=== PATIENT | female | born 1940 | race Caucasian/White ===

== ENCOUNTER → 2024-03-19 | Outpatient (CLI) | payer MEDICARE, MEDICAID, SELFPAY ==
[2024-03-19 10:18] LABS: Basophils % (Auto) 1 % (0-2.5); Eosinophils # (Auto) 0.4 Thou/mm3 (0.0-0.5); Eosinophils % (Auto) 6 % (0-10); Hematocrit 38.9 % (36.0-46.0); Hemoglobin 12.8 g/dL (12.0-16.0); Immature Granulocytes % (Auto) 0 % (0-0); Immature Granulocytes Auto 0.01 Thou/mm3 (0.00-0.00); Lymphocytes # (Auto) 2.8 Thou/mm3 (1.0-4.8); Lymphocytes % (Auto) 46 % (10-50); Mean Corpuscular HGB Conc 32.9 g/dl (31.0-37.0); Mean Corpuscular Hemoglobin 31.4 pg (25.0-35.0); Mean Corpuscular Volume 95 fL (80-100); Monocytes # (Auto) 0.6 Thou/mm3 (0.0-0.8); Monocytes % (Auto) 10 % (0-12); Neutrophils # (Auto) 2.3 Thou/mm3 (1.8-7.7); Neutrophils % (Auto) 37 % (37-80); Nucleated Red Blood Cell % 0 /100 WBC (0); Platelet Count 211 Thou/mm3 (140-440); RDW Standard Deviation 45.3 fL (36.4-46.3); Red Blood Count 4.08 Miln/mm3 (4.00-5.20); White Blood Count 6.1 Thou/mm3 (3.6-11.0)
[2024-03-19 10:38] LABS: Glucose Estimated Average 114 mg/dL (80-131); Hemoglobin A1C 5.6 % Hgb (4.8-6.0)
[2024-03-19 10:52] LABS: Alanine Aminotransferase 10 U/L (10-49); Albumin/Globulin Ratio 1.3 (1.2-2.2); Alkaline Phosphatase 87 U/L (46-116); Anion Gap 5 (7-16); Aspartate Amino Transferase 10 U/L (0-34); BUN/Creatinine Ratio 23 Ratio (12-20); Bilirubin,Total 0.4 mg/dL (0.3-1.2); Blood Urea Nitrogen 27 mg/dL (9-23); Calcium 9.4 mg/dL (8.3-10.6); Calcium (Corrected) 9.4 mg/dL (8.5-10.1); Carbon Dioxide 34.7 mMol/L (20.0-31.0); Cardiac Risk Estimate 2.9 RATIO (3.7-5.6); Chloride 100 mMol/L (98-107); Cholesterol 134 mg/dL (132-200); Creatinine (Component) 1.2 mg/dL (0.6-1.3); Globulin 3.2 gm/dL (2.3-3.5); Glucose 101 mg/dL (74-106); HDL Cholesterol 46 mg/dL (40-60); LDL Cholesterol,Calculated 71 mg/dL (0-130); Osmolality,Calculated 284 (275-295); Potassium 4.1 mMol/L (3.4-5.1); Sodium 140 mMol/L (136-145); Thyroid Stimulating Hormone 4.18 uIU/mL (0.55-4.78); Total Protein 7.2 gm/dL (5.7-8.2); Triglycerides 83 mg/dL (30-150); eGFR 45 See Note
== END | disposition home or self-care (01) ==
LOC: SLDO 08:38
PROVIDERS: Referring Provider Family Medicine; Visit Provider Family Medicine
DX: F71 Moderate intellectual disabilities (principal); K57.90 Diverticulosis of intestine, part unspecified, without perforation or abscess without bleeding; E11.9 Type 2 diabetes mellitus without complications
CPT/HCPCS: 36415; 80053; 80061; 83036; 84443; 85025

== ENCOUNTER 2024-04-22 09:47 | Outpatient (RCR) | payer MEDICARE, MEDICAID, SELFPAY ==
--- NOTE | 2024-04-22 11:15 | CTCFLWUP_ITS ---
Patient: GINNY RODRIGUEZ : 1940 Page 2 of 2 FOLLOW UP NOTE DATE OF SERVICE: 04/22/2024 NAME: GINNY RODRIGUEZ ACCOUNT: [id number] : 1940 AGE: 83 INTERVAL HISTORY: Patient is brought in by long term attender. Patient is doing well denies any bleeding per rectum or any blood in the stools. She has good appetite and have not lost any weight. ONCOLOGY HISTORY: DIAGNOSIS: Malignant neoplasm of sigmoid colon [ICD10] C18.7 DATE OF DIAGNOSIS: 11/27/2023 STAGE/TNM: Stage II colon adenocarcinoma status post hemicolectomy. No chemotherapy or radiation as well as goo d risk stage II TREATMENT HISTORY: Care?Plan Start?Date Cycle Day Intent HISTORY OF PRESENT ILLNESS: Ginny Rodriguez is a 83-year-old ENG speaking female with mild mental retardation has the following oncology history. 06/27/2023: Ms. Rodriguez had a colonoscopy done for heme positive stools. 07/24/2023: CT scan of the abdomen and pelvis with IV contrast? 08/13/2023: CEA 12.4 08/14/2023: Ms. Rodriguez had an attempted laparoscopic, open rectosigmoidectomy with low pelvic stapl ed coloproctostomy 09/25/2023: Hemoglobin 11.6, MCV 95, WBC 5.4, ANC 2.0, platelets 248,000. 10/16/2023: PET/CT scan? OTHER MEDICAL HISTORY/CONDITIONS: Invasive adenocarcinoma sigmoid Colon - dx diverticulosis Diabetes Hyperlipidemia HTN Sleep Apnea Asthma Major Depressive disorder Moderate intelluctual disorder Open rectosigmoidectomy with low pelvic stapled coloprotostomy - 08/14/23 - 1967 T and A - as child Cholecystectomy FAMILY HISTORY: Sibling:?Brother?-?skin Cancer?History:?UNKNOWN SOCIAL HISTORY: Occupational?History:?Disabled Education?Level:?Completed something less than 8th grade Marital?Status:?Single Tobacco?Pack?per?Day:?0 Tobacco?Use:?Denies ETOH?Use:?Denies Drug?Note:?Denies Social History Note:?Lives in care home [employer] HISTORY: Menarche?-?Age:?Unknown Menopause:?Unknown :?1 Live?Births:?1 Age?1st?:?27 MEDICATIONS: 1. albuterol - 90 mcg/24 h As directed 2. aspirin - 81 mg 1 Capsule Daily 3. BUDESONIDE/FORMOTEROL FUMARATE - As directed 4. Bystolic - 5 mg Daily 5. citalopram - 20 mg Daily 6. ipratropium bromide - As directed 7. Lasix - 40 mg Daily 8. levothyroxine - 50 mcg 1 tab Daily 9. multivitamin - 1 tab Daily 10. pravastatin - 40 mg Daily 11. Senna Lax - 8.5 mg Daily 12. spironolactone - 25 mg Daily Medications Last Reconciled by Adia Helton MA on 04/22/2024 ALLERGIES: REVIEW OF SYSTEMS: A complete 14-point review of systems was performed and is negative except as noted in interval histo ry. PHYSICAL EXAMINATION: VITAL SIGNS: Temperature?98.2, B/P?103/72, Oxygen?Saturation?89% PAIN: 0 - No pain ECOG Performance Status: 0 - Asymptomatic and fully active GENERAL APPEARANCE: Appears well, in no apparent distress, appropriately interactive. HEENT: Normocephalic, no temporal wasting, normal conjunctiva, no scleral icterus, normal hearing, li ps without lesions, neck normal range of motion. CARDIOVASCULAR: Not assessed. PULMONARY: Normal respiratory effort, no respiratory distress or use of accessory muscles, speaking i n full sentences, no tachypnea. EXTREMITIES: No pedal edema or cyanosis. SKIN: Normal skin appearance. NEUROLOGIC: Alert and oriented x4. PSHYCHIATRIC: Appropriate affect, mood normal, behavior normal, intact thought and speech. LABORATORY DATA: I have personally reviewed and interpreted each of the patient?s relevant lab tests, abnormal finding s are below: Date 03/19/24 ??WHITE?BLOOD?COUNT?(Thou/mm3) 6.1 ??RED?BLOOD?COUNT?(Miln/mm3) 4.08 ??HEMOGLOBIN?(gm/dl) 12.8 ??HEMATOCRIT?(%) 38.9 ??PLATELET?COUNT?(Thou/mm3) 211 ??NEUTROPHILS?%,?AUTO?(%) 37 ??LYMPH?%,?AUTO?(%) 46 ??NEUTROPHILS,?AUTO?(Thou/mm3) 2.3 ASSESSMENT/PLAN: 1. Stage IIa (T3 N0 M0), MMR proficient well-differentiated adenocarcinoma of the sigmoid colon s/p s igmoid colectomy (08/14/2023). No high risk features such as perforation, lymphovascular invasion or p erineural invasion. 2. PET/CT scan negative for metastatic disease. 3. Mild mental delay. Elderly age (83 years of age) Reviewed CBC CMP results with Ms. Rodriguez. Advised to do CBC CMP CEA. Will also get imaging CBC CMP CEA CT chest abdomen pelvis with IV contrast RETURN TO CLINIC: 4 weeks to review imaging and then another visit in 6 months with labs only BILLING AND COMPLIANCE: I reviewed external records from providers outside my specialty as summarized above. I spent a total of 50 minutes on this patient?s care on the day of their visit excluding time spent related to any bi lled procedures. This time includes time spent with the patient as well as time spent documenting in the medical record, reviewing patients records and tests, obtaining history, placing orders, communi cating with other healthcare professionals, counseling the patient, family or caregiver, and/or care coordination for the diagnoses above. Electronically Signed by: Freddy Trujillo MD T: 11:12 AM CC: PCP: Alejandro Holder Referring: Alejandro Holder This document was completed utilizing speech recognition software. Grammatical errors, random word in sertions, pronoun errors, and incomplete sentences are an occasional consequence of this system due t o software limitations, ambient noise, and hardware issues. Any formal questions or concerns about th e content, text or information contained within the body of this dictation should be directly address ed to the provider for clarification.
== END 2024-05-07 23:59 | disposition home or self-care (01) ==
LOC: SCTC 09:47
PROVIDERS: PCP Family Medicine; Referring Provider Family Medicine; Visit Provider Radiology Therapeutic Radiology
DX: C18.7 Malignant neoplasm of sigmoid colon (principal); Z90.49 Acquired absence of other specified parts of digestive tract; F70 Mild intellectual disabilities
CPT/HCPCS: 99212; G0463

== ENCOUNTER → 2024-05-25 | Outpatient (CLI) | payer MEDICARE, MEDICAID, SELFPAY ==
[2024-05-25 18:58] LABS: Albumin, Serum 3.5 gm/dL (3.4-4.8); Anion Gap 7 (7-16); BUN/Creatinine Ratio 19 Ratio (12-20); Blood Urea Nitrogen 19 mg/dL (9-23); Calcium 9.2 mg/dL (8.3-10.6); Calcium (Corrected) 9.6 mg/dL (8.5-10.1); Carbon Dioxide 37.2 mMol/L (20.0-31.0); Carcinoembryonic Antigen 1.2 ng/mL (0.0-5.0); Chloride 98 mMol/L (98-107); Glucose 90 mg/dL (74-106); Osmolality,Calculated 285 (275-295); Phosphorous 3.7 mg/dL (2.4-5.1); Potassium 4.6 mMol/L (3.4-5.1); Sodium 142 mMol/L (136-145); eGFR 56 See Note
== END | disposition home or self-care (01) ==
LOC: SLDO 17:08
PROVIDERS: PCP Family Medicine; Referring Provider Family Medicine; Visit Provider Family Medicine
DX: F71 Moderate intellectual disabilities (principal); K57.90 Diverticulosis of intestine, part unspecified, without perforation or abscess without bleeding; E11.9 Type 2 diabetes mellitus without complications; C19 Malignant neoplasm of rectosigmoid junction
CPT/HCPCS: 36415; 80069; 82378

== ENCOUNTER → 2024-05-26 | Outpatient (CLI) | payer MEDICARE, MEDICAID, SELFPAY ==
--- NOTE | 2024-05-26 12:00 | XR_ITS ---
Examination: CT chest with intravenous contrast CT abdomen with intravenous contrast CT pelvis with intravenous contrast CT pelvis without intravenous contrast CT abdomen without intravenous contrast CT pelvis without intravenous contrast 2-D coronal and sagittal reconstructions Time of exam: May 26, 2024 1146 hours Comparison PET/CT scan October 16, 2023 INDICATIONS: Diagnosis malignant neoplasm of the sigmoid colon one year ago restaging CTDI: vol (mGy) : 17.1 DLP: (mGycm): 1247 Technique: Multiple axial images of the chest, abdomen and pelvis with intravenous contrast, 3.0 mm slice thickness. Images obtained post intravenous injection Isovue 370 60 cc. 2-D sagittal and coronal reconstructions. Low dose protocols were performed. One or more of the following dose reduction techniques were used; automated exposure control, adjustment of the mA and/or KV according to patient size, use of iterative reconstruction technique. Findings: No thoracic aortic aneurysmal dilatation Pulmonary artery segments are not enlarged No paratracheal tracheobronchial or bronchopulmonary adenopathy Focal bronchiectasis in the right upper lobe No pneumonia or pulmonary edema 6 mm liver cyst Suspicious for tiny gallstones Spleen is not enlarged No pancreatic or adrenal mass No hydronephrosis No abdominal or pelvic lymphadenopathy No pericecal inflammatory change No pelvic mass Urinary bladder intact No bowel obstruction Moderate osteopenia IMPRESSION: No interval metastatic disease
== END | disposition home or self-care (01) ==
LOC: CCTX 11:16
PROVIDERS: PCP Family Medicine; Referring Provider Internal Medicine Hematology & Oncology; Visit Provider Internal Medicine Hematology & Oncology
DX: C18.7 Malignant neoplasm of sigmoid colon (principal)
CPT/HCPCS: 71270; 74178; A4649; Q9967

== ENCOUNTER → 2024-08-24 | Outpatient (CLI) | payer MEDICARE, MEDICAID, SELFPAY ==
[2024-08-24 09:27] LABS: Basophils # (Auto) 0.1 Thou/mm3 (0.0-0.2); Basophils % (Auto) 1 % (0-2.5); Eosinophils # (Auto) 0.3 Thou/mm3 (0.0-0.5); Eosinophils % (Auto) 5 % (0-10); Hematocrit 39.1 % (36.0-46.0); Immature Granulocytes % (Auto) 0 % (0-0); Immature Granulocytes Auto 0.02 Thou/mm3 (0.00-0.00); Lymphocytes # (Auto) 2.8 Thou/mm3 (1.0-4.8); Lymphocytes % (Auto) 46 % (10-50); Mean Corpuscular HGB Conc 33.2 g/dl (31.0-37.0); Mean Corpuscular Hemoglobin 31.6 pg (25.0-35.0); Mean Corpuscular Volume 95 fL (80-100); Monocytes # (Auto) 0.6 Thou/mm3 (0.0-0.8); Monocytes % (Auto) 9 % (0-12); Neutrophils # (Auto) 2.3 Thou/mm3 (1.8-7.7); Neutrophils % (Auto) 38 % (37-80); Nucleated Red Blood Cell % 0 /100 WBC (0); Platelet Count 204 Thou/mm3 (140-440); RDW Standard Deviation 44.4 fL (36.4-46.3); Red Blood Count 4.11 Miln/mm3 (4.00-5.20); White Blood Count 6.1 Thou/mm3 (3.6-11.0)
[2024-08-24 10:00] LABS: Carcinoembryonic Antigen 1.6 ng/mL (0.0-5.0)
[2024-08-24 10:01] LABS: Glucose Estimated Average 111 mg/dL (80-131); Hemoglobin A1C 5.5 % Hgb (4.8-6.0)
[2024-08-24 10:22] LABS: Alanine Aminotransferase 9 U/L (10-49); Albumin, Serum 3.7 gm/dL (3.4-4.8); Albumin/Globulin Ratio 1.1 (1.2-2.2); Alkaline Phosphatase 84 U/L (46-116); Anion Gap 5 (7-16); Aspartate Amino Transferase 14 U/L (0-34); BUN/Creatinine Ratio 21 Ratio (12-20); Bilirubin,Total 0.6 mg/dL (0.3-1.2); Blood Urea Nitrogen 25 mg/dL (9-23); Calcium 8.8 mg/dL (8.3-10.6); Cardiac Risk Estimate 2.8 RATIO (3.7-5.6); Chloride 102 mMol/L (98-107); Cholesterol 124 mg/dL (132-200); Creatinine (Component) 1.2 mg/dL (0.6-1.3); Globulin 3.3 gm/dL (2.3-3.5); Glucose 101 mg/dL (74-106); HDL Cholesterol 44 mg/dL (40-60); LDL Cholesterol,Calculated 67 mg/dL (0-130); Osmolality,Calculated 289 (275-295); Potassium 4.3 mMol/L (3.4-5.1); Sodium 143 mMol/L (136-145); Thyroid Stimulating Hormone 3.54 uIU/mL (0.55-4.78); Triglycerides 65 mg/dL (30-150); eGFR 45 See Note
== END | disposition home or self-care (01) ==
LOC: SLDO 08:20
PROVIDERS: Referring Provider Family Medicine; Visit Provider Family Medicine
DX: F71 Moderate intellectual disabilities (principal); K57.90 Diverticulosis of intestine, part unspecified, without perforation or abscess without bleeding; E11.9 Type 2 diabetes mellitus without complications
CPT/HCPCS: 36415; 80053; 80061; 82378; 83036; 84443; 85025

== ENCOUNTER 2024-11-17 10:25 | Outpatient (RCR) | payer MEDICARE, MEDICAID, SELFPAY ==
--- NOTE | 2024-11-17 11:21 | CTCFLWUP_ITS ---
Patient: GINNY GIORDANO : 1940 Page 6 of 7 FOLLOW UP NOTE DATE OF SERVICE: 11/17/2024 NAME: GINNY GIORDANO ACCOUNT: [id number] : 1940 AGE: 84 INTERVAL HISTORY: Patient is brought in by [facility]. Patient is doing well denies any bleeding per rectum or any blood in the stools. She has good appetite and have not lost any weight. ONCOLOGY HISTORY: DIAGNOSIS: Malignant neoplasm of sigmoid colon [ICD10] C18.7 DATE OF DIAGNOSIS: 11/27/2023 STAGE/TNM: Stage II colon adenocarcinoma status post hemicolectomy. No chemotherapy or radiation as well as good risk stage II TREATMENT HISTORY: Care?Plan Start?Date Cycle Day Intent HISTORY OF PRESENT ILLNESS: Ginny Giordano is a 84-year-old ENG speaking female with mild mental retardation has the following oncology history. 06/27/2023: Ms. Giordano had a colonoscopy done for heme positive stools. 07/24/2023: CT scan of the abdomen and pelvis with IV contrast? 08/13/2023: CEA 12.4 08/14/2023: Ms. Giordano had an attempted laparoscopic, open rectosigmoidectomy with low pelvic stapled coloproctostomy 09/25/2023: Hemoglobin 11.6, MCV 95, WBC 5.4, ANC 2.0, platelets 248,000. 10/16/2023: PET/CT scan? OTHER MEDICAL HISTORY/CONDITIONS: Invasive adenocarcinoma sigmoid Colon - dx diverticulosis Diabetes Hyperlipidemia HTN Sleep Apnea Asthma Major Depressive disorder Moderate intelluctual disorder Open rectosigmoidectomy with low pelvic stapled coloprotostomy - 08/14/23 - 1967 T and A - as child Cholecystectomy FAMILY HISTORY: Sibling:?Brother?-?skin Cancer?History:?UNKNOWN SOCIAL HISTORY: Occupational?History:?Disabled Education?Level:?Completed something less than 8th grade Marital?Status:?Single Tobacco?Pack?per?Day:?0 Tobacco?Use:?Denies ETOH?Use:?Denies Drug?Note:?Denies Social History Note:?Lives in detention [employer] HISTORY: Menarche?-?Age:?Unknown Menopause:?Unknown :?1 Live?Births:?1 Age?1st?:?27 MEDICATIONS: 1. albuterol - 90 mcg/24 h As directed 2. aspirin - 81 mg 1 Capsule Daily 3. BUDESONIDE/FORMOTEROL FUMARATE - As directed 4. Bystolic - 5 mg Daily 5. citalopram - 20 mg Daily 6. ipratropium bromide - As directed 7. Lasix - 40 mg Daily 8. levothyroxine - 50 mcg 1 tab Daily 9. multivitamin - 1 tab Daily 10. pravastatin - 40 mg Daily 11. Senna Lax - 8.5 mg Daily 12. spironolactone - 25 mg Daily Medications Last Reconciled by Elisa Sawyer MD on 11/17/2024 ALLERGIES: REVIEW OF SYSTEMS: A complete 14-point review of systems was performed and is negative except as noted in interval history. PHYSICAL EXAMINATION: VITAL SIGNS: Temperature?98.8, B/P?103/65, Oxygen?Saturation?94% Weight?210?lbs PAIN: 0 - No pain ECOG Performance Status: None GENERAL APPEARANCE: Appears well, in no apparent distress, appropriately interactive. HEENT: Normocephalic, no temporal wasting, normal conjunctiva, no scleral icterus, normal hearing, lips without lesions, neck normal range of motion. CARDIOVASCULAR: Not assessed. PULMONARY: Normal respiratory effort, no respiratory distress or use of accessory muscles, speaking in full sentences, no tachypnea. EXTREMITIES: No pedal edema or cyanosis. SKIN: Normal skin appearance. NEUROLOGIC: Alert and oriented x4. PSHYCHIATRIC: Appropriate affect, mood normal, behavior normal, intact thought and speech. LABORATORY DATA: I have personally reviewed and interpreted each of the patient?s relevant lab tests, abnormal findings are below: Date 05/25/24 08/24/24 ??WHITE?BLOOD?COUNT?(Thou/mm3) ? 6.1 ??RED?BLOOD?COUNT?(Miln/mm3) ? 4.11 ??HEMOGLOBIN?(gm/dl) ? 13.0 ??HEMATOCRIT?(%) ? 39.1 ??PLATELET?COUNT?(Thou/mm3) ? 204 ??NEUTROPHILS?%,?AUTO?(%) ? 38 ??LYMPH?%,?AUTO?(%) ? 46 ??NEUTROPHILS,?AUTO?(Thou/mm3) ? 2.3 ??GLUCOSE,RANDOM?(mg/dL) ? 101 ??BLOOD?UREA?NITROGEN?(mg/dL) ? 25?H ??CREATININE?(mg/dL) ? 1.20 ??SODIUM?(mmol/L) ? 143 ??POTASSIUM?(mmol/L) ? 4.3 ??CHLORIDE?(mmol/L) ? 102 ??CrCl?(CandG)?(ml/min) ? 38.75 ??AST/SGOT?(Unit/L) ? 14 ??ALT/SGPT?(Unit/L) ? 9?L ??ALKALINE?PHOSPHATASE?(Unit/L) ? 84 ??BILIRUBIN,?TOTAL?(mg/dL) ? 0.6 ??PROTEIN?TOTAL?(gm/dl) ? 7.0 ??ALBUMIN,?SERUM?(gm/dl) ? 3.7 ??GLOBULIN?(gm/dl) ? 3.3 ??ALBUMIN/GLOBULIN?RATIO ? 1.1?L ??CALCIUM,?SERUM?(mg/dL) ? 8.8 ??CALCIUM?SERUM?(CORRECTED)?(mg/dL) ? 9.0 ??CEA?(O*)?(ng/ml) 1.2 1.6 ASSESSMENT/PLAN: 1. Stage IIa (T3 N0 M0), MMR proficient well-differentiated adenocarcinoma of the sigmoid colon s/p sigmoid colectomy (08/14/2023). No high risk features such as perforation, lymphovascular invasion or perineural invasion. 2. PET/CT scan negative for metastatic disease. 3. Mild mental delay. Elderly age (83 years of age) Reviewed CBC CMP results with Guille Giuliana. Advised to do CBC CMP CEA. Will also get imaging CBC CMP CEA CT chest abdomen pelvis with IV contrastis negative Rtc in 6 months ORDERS: Order # Description [id number] Comprehensive Metabolic Panel - 12 + CBC with Auto Diff + MD Follow Up 6 Month + [id number] CEA RETURN TO CLINIC: I reviewed the diagnosis, prognosis, and recommended treatment/procedure options with the patient (and/or their legal insurance representative), including the potential benefits, risks, side effects and alternative therapies. We also discussed the option of no treatment and the possibility of clinical trial participation, if applicable. All questions were addressed, and they demonstrated understanding. They provided informed consent to proceed with the proposed plan of care. BILLING AND COMPLIANCE: I reviewed external records from providers outside my specialty as summarized above. I spent a total of 50 minutes on this patient?s care on the day of their visit excluding time spent related to any billed procedures. This time includes time spent with the patient as well as time spent documenting in the medical record, reviewing patients records and tests, obtaining history, placing orders, communicating with other healthcare professionals, counseling the patient, family or caregiver, and/or care coordination for the diagnoses above. Electronically Signed by: {Object.Sanct_ID*PnP.NameFL@M}, {Object.Sanct_ID*PnP.Suffix@U} D: {Object.Sanct_Date} T: {Object.Sanct_Time} CC: PCP: Alejandro Holder Referring: Alejandor Holder This document was completed utilizing speech recognition software. Grammatical errors, random word insertions, pronoun errors, and incomplete sentences are an occasional consequence of this system due to software limitations, ambient noise, and hardware issues. Any formal questions or concerns about the content, text or information contained within the body of this dictation should be directly addressed to the provider for clarification.
== END 2024-12-05 23:59 | disposition home or self-care (01) ==
LOC: SCTC 10:25
PROVIDERS: PCP Family Medicine; Referring Provider Family Medicine; Visit Provider Internal Medicine Hematology & Oncology
DX: C18.7 Malignant neoplasm of sigmoid colon (principal); Z90.49 Acquired absence of other specified parts of digestive tract
CPT/HCPCS: 99212; G0463

== ENCOUNTER → 2024-12-02 | Outpatient (CLI) | payer MEDICARE, MEDICAID, SELFPAY ==
[2024-12-02 09:05] LABS: Carcinoembryonic Antigen 1.1 ng/mL (0.0-5.0)
== END | disposition home or self-care (01) ==
LOC: SLDO 07:49
PROVIDERS: Referring Provider Internal Medicine Hematology & Oncology; Visit Provider Internal Medicine Hematology & Oncology
DX: C18.1 Malignant neoplasm of appendix (principal)
CPT/HCPCS: 36415; 82378

== ENCOUNTER → 2025-03-07 | Outpatient (CLI) | payer MEDICARE, MEDICAID, SELFPAY ==
[2025-03-07 09:05] LABS: Basophils # (Auto) 0.0 Thou/mm3 (0.0-0.2); Basophils % (Auto) 1 % (0-2.5); Eosinophils # (Auto) 0.3 Thou/mm3 (0.0-0.5); Eosinophils % (Auto) 5 % (0-10); Hematocrit 38.2 % (36.0-46.0); Hemoglobin 12.4 g/dL (12.0-16.0); Immature Granulocytes Auto 0.02 Thou/mm3 (0.00-0.00); Lymphocytes # (Auto) 2.8 Thou/mm3 (1.0-4.8); Lymphocytes % (Auto) 44 % (10-50); Mean Corpuscular HGB Conc 32.5 g/dl (31.0-37.0); Mean Corpuscular Hemoglobin 32.1 pg (25.0-35.0); Mean Corpuscular Volume 99 fL (80-100); Monocytes # (Auto) 0.6 Thou/mm3 (0.0-0.8); Monocytes % (Auto) 9 % (0-12); Neutrophils # (Auto) 2.7 Thou/mm3 (1.8-7.7); Neutrophils % (Auto) 42 % (37-80); Nucleated Red Blood Cell # 0.00 Thou/mm3 (0.00-0.00); Nucleated Red Blood Cell % 0 /100 WBC (0); Platelet Count 199 Thou/mm3 (140-440); RDW Standard Deviation 45.1 fL (36.4-46.3); Red Blood Count 3.86 Miln/mm3 (4.00-5.20); White Blood Count 6.4 Thou/mm3 (3.6-11.0)
[2025-03-07 09:18] LABS: Carcinoembryonic Antigen 1.2 ng/mL (0.0-5.0)
[2025-03-07 09:20] LABS: Alanine Aminotransferase 14 U/L (10-49); Albumin, Serum 3.9 gm/dL (3.4-4.8); Albumin/Globulin Ratio 1.2 (1.2-2.2); Alkaline Phosphatase 90 U/L (46-116); Anion Gap 8 (7-16); Aspartate Amino Transferase 16 U/L (0-34); BUN/Creatinine Ratio 27 Ratio (12-20); Bilirubin,Total 0.4 mg/dL (0.3-1.2); Blood Urea Nitrogen 30 mg/dL (9-23); Calcium 9.0 mg/dL (8.3-10.6); Calcium (Corrected) 9.1 mg/dL (8.5-10.1); Carbon Dioxide 36.2 mMol/L (20.0-31.0); Cardiac Risk Estimate 2.7 RATIO (3.7-5.6); Chloride 102 mMol/L (98-107); Cholesterol 126 mg/dL (132-200); Creatinine (Component) 1.1 mg/dL (0.6-1.3); Globulin 3.2 gm/dL (2.3-3.5); Glucose 88 mg/dL (74-106); HDL Cholesterol 46 mg/dL (40-60); LDL Cholesterol,Calculated 71 mg/dL (0-130); Osmolality,Calculated 295 (275-295); Potassium 4.3 mMol/L (3.4-5.1); Sodium 146 mMol/L (136-145); Thyroid Stimulating Hormone 3.01 uIU/mL (0.55-4.78); Total Protein 7.1 gm/dL (5.7-8.2); Triglycerides 47 mg/dL (30-150); eGFR 50 See Note
[2025-03-07 09:24] LABS: Glucose Estimated Average 120 mg/dL (80-131); Hemoglobin A1C 5.8 % Hgb (4.8-6.0)
== END | disposition home or self-care (01) ==
LOC: SLDO 08:15
PROVIDERS: PCP Family Medicine; Referring Provider Family Medicine; Visit Provider Family Medicine
DX: F71 Moderate intellectual disabilities (principal); K57.90 Diverticulosis of intestine, part unspecified, without perforation or abscess without bleeding; E11.9 Type 2 diabetes mellitus without complications
CPT/HCPCS: 36415; 80053; 80061; 82378; 83036; 84443; 85025